=== PATIENT | male | born 1995 | race Caucasian/White ===

== ENCOUNTER → 2017-10-29 | Outpatient (CLI) | payer BC ==
[~2017-10-29] MED LIST: HYOS0.3725 PO; LACTCHW3 PO
== END | disposition home or self-care (01) ==
LOC: C.RDSM 11:50
PROVIDERS: ATTEND Orthopaedic Surgery
DX: M25.552 Pain in left hip (principal)

== ENCOUNTER → 2017-11-18 | Day surgery (SDC) | payer BC ==
[2017-11-07 14:09] VITALS: Ht 185.4 cm; Wt 79.5 kg
[~2017-11-18] VITALS: Ht 185.4 cm; Wt 79.5 kg
[~2017-11-18] MED LIST changes: +ATROPINE SULFATE 0.1 MG/ML 5ML SYR IV PRN; +CEFAZOLIN 2000MG IV PUSH 10 ML IV SCH; +DEXAMETHASONE SOD INJ 4 MG/ML VIAL ONE; +ESMOLOL HCL 10 MG/ML 10 ML VIAL ONE; +EpHEDrine SULFATE INJ 50 MG/ML AMP IV PRN; +EpINEphrine HCL INJ 1 MG/ML 5ML SYRINGE ONE; +FENTANYL CITRATE INJ 50 MCG/1 ML 2 ML VIAL ONE; +FLUMAZENIL 0.1 MG/1 ML 10 ML VIAL IV PRN; +HYDROmorphone INJ 1 MG/ML SYR IV PRN; +HYDROmorphone INJ 1 MG/ML SYR ONE; -HYOS0.3725 PO; +LACTATED RINGER'S 1000ML 1,000 ML IV SCH; -LACTCHW3 PO; +MIDAZOLAM HCL 1 MG/ML 2ML VIAL ONE; +MoRPHine SULFATE 2 MG/ML CARP IV PRN; +MoRPHine SULFATE 4 MG/ML 1 ML CARP\\VIAL IV PRN; +NALOXONE HCL 0.4 MG/1 ML VIAL/CARP IV PRN; +ONDANSETRON INJ 2 MG/ML 2 ML VIAL IV PRN; +ONDANSETRON INJ 2 MG/ML 2 ML VIAL ONE; +OXYCODONE/ACETAMINOPHEN 5-325 TAB PO PRN; +PRLSR20 PO; +PROMETHAZINE HCL INJ 12.5 MG in SODIUM CHLORIDE 0.9% 50ML 50 ML IV PRN; +PROPOFOL IV EMULSION 10 MG/ML 20 ML VIAL IV ONE; +ROCURONIUM BROMIDE 10 MG/ML 5 ML VIAL IV ONE; +ROPIVACAINE 0.5% 5 MG/ML 30 ML VIAL ONE; +SODIUM CHLORIDE 0.9% 1000ML 1,000 ML IV SCH
--- NOTE | 2017-11-18 07:46 | History & Physical Bridge - [place] ---
H&P Re-Evaluation Bridge Note: I have examined the patient, reviewed the History & Physical and in the interval since the performance of the History & Physical I have noted the following changes of clinical significance: No changes noted
--- NOTE | 2017-11-18 14:01 | [facility] Post Operative Brief Note ---
Immediate Operative Summary Operative Date Nov 18, 2017. Pre-Operative Diagnosis Left Hip Labral Tear, Femoroacetabular Impingement Post-Operative Diagnosis Same Procedure(s) Performed Left Hip Arthroscopy, Labral Repair, Cheilectomy, Capsular Plication, Chondroplasty Surgeon Dr. Vaughan Classifier Operator Surgeon(s) Dr. Janice Bertrand, Fellow; Rajan Arndt PA-C Estimated Blood Loss 10 ml Findings Labrum torn from 9 to 12 o'clock repaired with 4 anchors. Chondral delamination anterior-superior acetabulum debrided to stable margins. Cheilectomy performed for CAM lesion. Capsule closed with 2 nonabsorbable sutures. Fluids (cc crystalloids) 1000 cc Specimens None Drains None Anesthesia General with local Complication(s) None Disposition Recovery Room / PACU
--- NOTE | 2017-11-18 14:16 | [facility] Operative Report ---
Operative Report Operative Date Nov 18, 2017. Pre-Operative Diagnosis Left Hip Labral Tear, Femoroacetabular Impingement Post-Operative Diagnosis Same Procedure(s) Performed Left Hip Arthroscopy, Labral Repair, Cheilectomy, Capsular Plication, Chondroplasty Surgeon Dr. Vaughan Brick Pitcher Surgeon(s) Dr. Janice Bertrand, Fellow; Rajan Arndt PA-C Estimated Blood Loss 10 ml Findings NA Fluids (cc crystalloids) 1000 cc Specimens None Complication(s) None Disposition Recovery Room / PACU I attest to the content of the Intraoperative Record and any orders documented therein. Any exceptions are noted below.
--- NOTE | 2017-11-18 14:25 | Discharge Instructions ---
Discharge Instructions Date of Service Nov 18, 2017. Admission Reason for Admission: Left Hip Labral Tear, Femoroacetabular Impingement Discharge Discharge Diagnosis / Problem: Left Hip Labral Tear, Femoroacetabular Impingement Discharge Goals Goal(s): Decrease discomfort, Improve function, Increase independence Activity Recommendations Activity Limitations: as noted below Lifting Limitations: until after follow-up appointment Exercise/Sports Limitations: until after follow-up appointment May Resume Sexual Activity: when tolerated Shower/Bathe: tomorrow, keep incision dry Driving or Machine Use: Not until cleared by orthopedic surgeon Weightbearing Status: Left weightbearing (Flat foot weight bearing of 20 lbs with aide of crutches) . Instructions / Follow-Up Instructions / Follow-Up Post-operative Instructions Dear Patient and Family/Friends, Before you are discharged from the hospital, it is important to know what to expect when you get home after surgery. To that end, we have created this sheet of discharge instructions which covers many commonly asked questions. Make sure you go through this sheet in its entirety with your nurse before you are discharged. Please note that we will go over the specifics of your surgery and recovery when you return for your first post-operative visit. Sincerely, Dr. Vaughan Pain Expect to be in a fair amount of pain after surgery. Remember, our goal is not to eliminate your pain, but to make it tolerable. It is a good idea to stay ahead of your pain by taking the medications you were prescribed once you get home. Typically, the pain starts improving 3-7 days after surgery. You should start weaning off the narcotic pain medication (oxycodone, hydrocodone, hydromorphone, morphine) as soon as your pain improves. Please call our office if your pain is not adequately controlled. Ice Ice your operative site at least 5 times a day for 15-30 minutes at a time. Make sure you have a thin cloth between the ice or cooling unit and your skin to prevent gray bite. This is especially important if you received a nerve block. Continue icing your operative site for the first 5-7 days after surgery , then as needed. Diet/Nausea/Vomiting Start by drinking clear liquids and eating crackers. If you can tolerate this, then you may resume your normal diet. If you feel nauseated or vomit, take Zofran/ondansetron (if prescribed). Please call our office if you have intractable nausea or vomiting, or, if after hours, you may go to the Emergency Room for help. Constipation Constipation is a common side effect of narcotic pain medication. If you have not had a bowel movement within 2 days after surgery, we recommend purchasing an over the counter laxative such as Milk of Magnesia, Dulcolax, or Miralax from a local pharmacy, and taking it as instructed. Call our clinic if any questions. Slings and Braces If you were placed in a sling or brace, it must be worn at all times, including sleep. You may remove your sling or brace for physical therapy, home exercises , and showering. The length of time you will be in your brace and range of motion restrictions depends on what surgery you had; these details will be reviewed at your first post-operative appointment. Nerve block The anesthesia team sometimes places a nerve block to help with post-operative pain control. This results in significant numbness and inability to move the extremity. The nerve block usually wears off in 8-12 hours, but sometimes can last up to 24 hours. Please call our office if you are still unable to move your extremity after 24 hours, unless you received a pain pump to take home. Nerve blocks typically wear off quickly, so start taking pain medication as soon as you start feeling soreness near your surgical site. Weight bearing and Range of Motion. Do not bear any weight through your operative extremity immediately after surgery. If you had upper extremity surgery, do not lift anything with that arm. If you are in a knee brace, keep it locked in place until your follow-up. We will discuss your weight bearing, range of motion, and lifting restrictions in detail at your first post-operative appointment. Continuous Passive Motion (CPM) Machine If you were prescribed a CPM machine, it will start after your first post- operative appointment, at which time we will give you instructions on the range of motion settings and duration of treatment Physical therapy You will be given a prescription for physical therapy or occupational therapy at your first post-operative appointment. Typically, patients start therapy within 1 week of surgery Wound care and showering We will inspect your wound at your first post-operative visit, and may do a dressing change at that time. Most patients will be in a water-proof dressing that is removed 14 days after surgery. It is normal to see some dried blood on the dressing. Do not remove your dressing, paper strips or sutures yourself unless you are given permission. Showering is allowed the day after surgery. Do not scrub or remove any dressings. The wound should not be submerged underwater (i.e. in a bathtub or pool) until 4 weeks after surgery SULEMAN stockings If you were given white stockings, these are to be worn at all times except to shower (on both legs) for the first 2 weeks after surgery. Driving You may not drive while taking narcotic pain medication or while in a cast, splint, sling or brace. You, the patient, need to make the final determination about when you are safe to drive, however, the earliest you may consider driving after surgery is below: Hand/Wrist/Elbow Surgery: 3 days Shoulder Surgery: 2 weeks Hip,/Knee/Ankle Surgery: 4 weeks Fracture repair: 6 weeks Return to Work Your return to work depends on what surgery was done and what type of work you do. Please bring any paperwork your employer needs completed to your first post -operative visit. Also, bring a description of your job duties, as this helps us to understand what risks you may face at work. Travel Avoid long distance travel (greater than 1 hour) in airplanes and cars for the first 6 weeks after surgery. If you must travel, you need to have a Doppler ultrasound done before you travel to rule out a blood clot in your legs. Follow-up You should have a follow-up appointment already scheduled 1-2 days after surgery. If not, please contact our office to make this appointment before you leave the hospital. When to call the office It is normal to have swelling and bruising in the limb that was operated on. This will improve with time. It is also normal to have fevers for the first 2 days after surgery. Reasons you should call your doctor include: Uncontrolled pain; Nausea, vomiting, or constipation that does not improve with medication; Fevers over 101.5, chills, sweats; Drainage or bleeding from the wound; Foul odor; Spreading areas of redness; Any other concerns Current Hospital Diet Patient's current hospital diet: Discharge Diet Recommended Diet: Regular Diet Procedures Procedures Performed: Left Hip Arthroscopy, Labral Repair, Cheilectomy, Capsular Plication, Chondroplasty Pending Studies Studies pending at discharge: no Medical Emergencies . Who to Call and When: Medical Emergencies: If at any time you feel your situation is an emergency, please call 911 immediately. . Non-Emergent Contact Non-Emergency issues call your: Primary Care Provider Call Non-Emergent contact if: you have a fever, temperature is above 101.5, your pain is not controlled, your pain is worsening, wound has increased drainage, you have any medication questions . "Provider Documentation" section prepared by Feliberto Arndt. . VTE Core Measure Inpt VTE Proph given/why not?: Other Anticoagulation (Aspirin EC 81 mg), [place] Drug Monitoring Program Search Results: patient reviewed within database, no issues identified, see additional documentation
[2017-11-18 15:39] VITALS: TEMP 36.9
[2017-11-18 16:08] VITALS: BP 131/76; PULSE 97; O2SAT 97
--- NOTE | 2017-11-18 16:11 | Anesthesia Progress Nt - [facility] ---
Anesthesia Post Op Note Date & Time Nov 18, 2017 at 16:11 Vital Signs Pain Intensity: 0 Vital Signs Past 12 Hours Date Time Temp Pulse Resp B/P (MAP) Pulse Ox O2 Delivery O2 Flow Rate FiO2 11/18/17 16:08 97 20 131/76 (94) 97 Room Air 11/18/17 15:39 36.9 99 20 137/79 (98) 99 Room Air 11/18/17 15:32 114 20 96 11/18/17 15:32 113 20 11/18/17 15:31 143/68 11/18/17 15:29 92 19 94 11/18/17 15:29 86 19 11/18/17 15:29 86 19 11/18/17 15:29 92 19 94 11/18/17 15:28 96 18 11/18/17 15:28 96 18 96 11/18/17 15:26 37.2 100 20 141/69 94 Room Air 11/18/17 15:26 141/69 11/18/17 15:23 90 21 93 11/18/17 15:23 88 21 11/18/17 15:22 100 24 11/18/17 15:22 99 24 93 11/18/17 15:21 147/71 11/18/17 15:17 120 16 11/18/17 15:17 120 16 96 11/18/17 15:16 149/75 11/18/17 15:15 114 19 11/18/17 15:15 115 19 95 11/18/17 15:14 102 16 95 11/18/17 15:14 102 16 11/18/17 15:13 121 21 96 11/18/17 15:13 119 21 11/18/17 15:13 119 21 11/18/17 15:13 121 21 96 11/18/17 15:11 138/71 11/18/17 15:11 138/71 11/18/17 15:08 136 18 11/18/17 15:08 136 18 11/18/17 15:08 136 18 97 11/18/17 15:08 136 18 97 11/18/17 15:06 133/68 11/18/17 15:06 133/68 11/18/17 15:03 96 19 11/18/17 15:03 97 19 96 11/18/17 15:03 97 19 96 11/18/17 15:03 96 19 1/8/18 15:01 142/75 11/18/17 15:01 142/75 11/18/17 14:58 78 19 11/18/17 14:58 74 19 98 11/18/17 14:58 74 19 98 11/18/17 14:58 78 19 11/18/17 14:56 139/66 11/18/17 14:56 139/66 11/18/17 14:53 79 21 100 11/18/17 14:53 74 21 11/18/17 14:53 74 21 11/18/17 14:53 79 21 100 11/18/17 14:51 142/69 11/18/17 14:51 142/69 11/18/17 14:48 68 21 11/18/17 14:48 71 21 100 11/18/17 14:48 71 21 100 11/18/17 14:48 68 21 11/18/17 14:46 141/72 11/18/17 14:46 141/72 11/18/17 14:43 59 18 100 11/18/17 14:43 64 18 11/18/17 14:43 64 18 11/18/17 14:43 59 18 100 11/18/17 14:42 90 21 11/18/17 14:42 89 21 100 11/18/17 14:41 143/73 11/18/17 14:37 95 21 11/18/17 14:37 96 21 100 11/18/17 14:36 145/66 11/18/17 14:32 84 22 11/18/17 14:32 82 22 100 11/18/17 14:31 144/73 11/18/17 14:27 91 23 11/18/17 14:27 91 23 100 11/18/17 14:26 140/76 11/18/17 14:22 94 17 100 11/18/17 14:22 93 17 11/18/17 14:21 92 17 141/77 100 11/18/17 14:21 91 17 11/18/17 14:17 127/83 11/18/17 14:16 37.6 96 18 127/83 100 Mask 6 11/18/17 07:25 36.8 75 16 145/85 (105) 99 Room Air Notes Mental Status: alert / awake / arousable, participated in evaluation Pt Amnestic to Procedure: Yes Nausea / Vomiting: adequately controlled Pain: adequately controlled Airway Patency, RR, SpO2: stable & adequate BP & HR: stable & adequate Hydration State: stable & adequate Anesthetic Complications: no major complications apparent
--- NOTE | 2017-11-18 16:57 | OPERATIVE REPORT ---
DATE OF OPERATION: 11/18/2017 PREOPERATIVE DIAGNOSIS: Left hip labral tear and left hip femoral acetabular impingement. POSTOPERATIVE DIAGNOSIS: Same. PROCEDURES PERFORMED: 1. Left hip arthroscopy. 2. Left hip chondroplasty. 3. Left hip labral repair. 4. Left hip cheilectomy. 4. Left hip capsular closure. SURGEON: Dr. Fernando Vaughan. CLINICAL INFORMATICS DIRECTOR SURGEON: Tre Bertrand and Feliberto Arndt. ESTIMATED BLOOD LOSS: 10 mL. ANESTHESIA: General with local. SPECIMENS: None. COMPLICATIONS: None IMPLANTS: Four Calvin Nanotack suture anchors. 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 He has undergone physical therapy which failed to relieve his pain. The pain is in his groin. He had an MRI done that showed a labral tear. His physical exam is significant for a positive impingement test. 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 I had a long discussion with him about the risks and benefits of surgery, alternatives to surgery and expected outcomes. After reviewing all these, he elected to proceed with surgery. All questions were answered. Informed consent was signed. DESCRIPTION OF PROCEDURE: The patient was identified in the preoperative holding area where his surgical site was marked. He was then brought back to main operating room, was placed on the operating room table and general anesthesia was administered. He was then placed in traction boots. A slight amount of traction was placed on the nonoperative leg. We then placed pulled gross traction on the operative leg. We verified under fluoroscopic guidance that we could distract the hip joint. Once this was verified, the traction was placed back down and his leg was prepped and draped in the normal sterile fashion. Prior to incision, a multidisciplinary timeout was called. All in the room were in agreement. We began by placing him in traction. The spinal needle was placed through an anterolateral portal. A mid anterior portal was then created under direct visualization. We then switched the camera to the mid anterior portal to look back on our anterolateral portal which we confirmed did not damage the labrum. I then used the Samurai blade to create a capsulotomy in both directions. The camera was then switched back to the anterolateral portal and the capsulotomy was completed. Next, the diagnostic arthroscopy was performed revealing the below findings: 1. The articular cartilage of the acetabulum showed a chondral flap and tearing from the 3 o'clock to the 12 o'clock position along the peripheral 3 mm. There was additionally chondral softening that went to a greater depth of approximately 10 mm between the 2 and 1 o'clock positions. The remainder of the acetabular cartilage was normal. 2. The labrum was torn from the 3 o'clock to the 12 o'clock position. 3. The femoral head articular cartilage was normal; however, there was an anterolateral Cam deformity. 4. The cotyloid fossa was normal with no ligamentum teres tears. Having completed our diagnostic arthroscopy, we then used a 50 degree cool cut wand as well as the eflex to develop the recess between the labrum and the capsule. There was a small amount of his anterior inferior iliac spine that was prominent, adjacent to his labral tear. This was debrided back with a 4 mm bur, approximately 4 mm. A biter was used to remove the chondral flap and a shaver was used to smooth out the cartilage edges. Next, we repaired his labrum. A first anchor was placed at the 12 o'clock position through the anterolateral portal while viewing from the mid anterior portal. This was a Nanotack suture anchor. A suture was passed in a simple stitch pattern and tied down without difficulty. The next anchor was placed at 1 o'clock position. This anchor was, however, passed in a mattress fashion and tied down. We then switched our viewing to the anterolateral portal and placed our third anchor. Our third anchor was then placed at the 2 o'clock position through the mid anterior portal. This was also passed in a mattress fashion. Our final anchor was then placed at the 3 o'clock position using a simple stitch pattern. At this point, the probe was introduced and the labral repair was extremely stable. I elected not to perform a microfracture of his areas of cartilage softening since I was treating his Cam deformity which is likely the underlying cause of this cartilage lesion. Additionally, there was no full thickness cartilage defect. The traction was let down. The hip was flexed 40 degrees and externally rotated. The Cam deformity was identified. The area of excess bone along the anterior superior femoral head was removed with the 5.5 mm alex. The hip was gradually moved into internal rotation and extension to continue the cheilectomy upon at the lateral aspect of the femoral head. We then brought the hip up into 90 degrees of flexion and internal rotation and we had maintained the suction seal without causing any excessive bone resection. Next, the 70 degree slingshot was introduced through the mid anterior portal. #2 FiberWire suture was then passed to close the capsule. A second TigerWire suture was passed additionally for capsular closure. Once these sutures had both been passed, they were then tied down sequentially. Excellent reapproximation of the tissues was obtained. The portals were then closed with 3-0 nylon sutures. 30 mL of 0.5% ropivacaine without epinephrine was injected in the pericapsular soft tissues. A sterile dressing was placed. His leg was placed into a hip brace with the range of motion set from 0-70 degrees. He was awoken from anesthesia and transferred to the recovery room in stable condition. POSTOPERATIVE COURSE: The patient will be discharged home from the recovery room. He will follow the PT protocol for a nonmicro-fractured hip. He will be foot flat weightbearing for the next 2 weeks with crutches in the brace. At 2 weeks, he will discontinue the crutches and the brace and gradually work on resuming a normal gait. He will follow up in my clinic tomorrow to review his restrictions as well as his arthroscopic images. He will be on Celebrex for heterotopic ossification prophylaxis and DVT prophylaxis will be with aspirin. I attest to the content of the Intraoperative Record and any orders documented therein. Any exceptions are noted below. ANTONIETA
== END | disposition home or self-care (01) ==
LOC: X.SURG 06:52
PROVIDERS: ATTEND Orthopaedic Surgery
DX: S73.192A Other sprain of left hip, initial encounter (principal); M25.852 Other specified joint disorders, left hip; X58.XXXA Exposure to other specified factors, initial encounter; Y93.64 Activity, baseball; K21.9 Gastro-esophageal reflux disease without esophagitis; Z79.899 Other long term (current) drug therapy

== ENCOUNTER → 2017-12-25 | Outpatient (CLI) | payer BC ==
[~2017-12-25] MED LIST changes: -ATROPINE SULFATE 0.1 MG/ML 5ML SYR IV PRN; -CEFAZOLIN 2000MG IV PUSH 10 ML IV SCH; -DEXAMETHASONE SOD INJ 4 MG/ML VIAL ONE; -ESMOLOL HCL 10 MG/ML 10 ML VIAL ONE; -EpHEDrine SULFATE INJ 50 MG/ML AMP IV PRN; -EpINEphrine HCL INJ 1 MG/ML 5ML SYRINGE ONE; -FENTANYL CITRATE INJ 50 MCG/1 ML 2 ML VIAL ONE; -FLUMAZENIL 0.1 MG/1 ML 10 ML VIAL IV PRN; -HYDROmorphone INJ 1 MG/ML SYR IV PRN; -HYDROmorphone INJ 1 MG/ML SYR ONE; -LACTATED RINGER'S 1000ML 1,000 ML IV SCH; -MIDAZOLAM HCL 1 MG/ML 2ML VIAL ONE; -MoRPHine SULFATE 2 MG/ML CARP IV PRN; -MoRPHine SULFATE 4 MG/ML 1 ML CARP\\VIAL IV PRN; -NALOXONE HCL 0.4 MG/1 ML VIAL/CARP IV PRN; -ONDANSETRON INJ 2 MG/ML 2 ML VIAL IV PRN; -ONDANSETRON INJ 2 MG/ML 2 ML VIAL ONE; -OXYCODONE/ACETAMINOPHEN 5-325 TAB PO PRN; -PROMETHAZINE HCL INJ 12.5 MG in SODIUM CHLORIDE 0.9% 50ML 50 ML IV PRN; -PROPOFOL IV EMULSION 10 MG/ML 20 ML VIAL IV ONE; -ROCURONIUM BROMIDE 10 MG/ML 5 ML VIAL IV ONE; -ROPIVACAINE 0.5% 5 MG/ML 30 ML VIAL ONE; -SODIUM CHLORIDE 0.9% 1000ML 1,000 ML IV SCH
== END | disposition home or self-care (01) ==
LOC: C.RDSM 17:16
PROVIDERS: ATTEND Orthopaedic Surgery
DX: Z09 Encounter for follow-up examination after completed treatment for conditions other than malignant neoplasm (principal)